=== PATIENT | female | born 1975 | race American Indian/Alaskan Native ===

== ENCOUNTER 2018-11-22 23:48 | Emergency (ER) | payer MEDICAID ==
[2018-11-23 00:08] VITALS: BMI 36.0
[2018-11-23 00:12] VITALS: RESP 18; TEMP 97.8; O2SAT 100
--- NOTE | 2018-11-23 00:48 | C.PDOC ---
History Of Present Illness 43 y/o female pt presents to the ER c/o right lower back pain. Associated sx includes radiating to the right thigh and right leg. Pt was seen at [facility] [place] last night and received naproxen but has not taken it. Pt denies any urinary sx, bowel or bladder incontinence or fever. Time Seen by Provider: 11/23/18 00:09 Chief Complaint (Nursing): Back Pain History Per: Patient History/Exam Limitations: no limitations Onset/Duration Of Symptoms: Days Current Symptoms Are (Timing): Still Present Past Medical History Reviewed: Historical Data, Nursing Documentation, Vital Signs Vital Signs: Last Vital Signs Temp 97.8 F 11/23/18 00:08 Pulse 86 11/23/18 00:08 Resp 18 11/23/18 00:08 BP 154/90 H 11/23/18 00:08 Pulse Ox 100 11/23/18 00:08 - Medical History PMH: CHF, HTN Family History: States: No Known Family Hx - Social History Hx Alcohol Use: Yes Hx Substance Use: No - Immunization History Hx Tetanus Toxoid Vaccination: No Hx Influenza Vaccination: Yes Hx Pneumococcal Vaccination: No Review Of Systems Except As Marked, All Systems Reviewed And Found Negative. Constitutional: Negative for: Fever Genitourinary: Negative for: Dysuria, Frequency, Incontinence, Hematuria Musculoskeletal: Positive for: Back Pain (right lower ), Leg Pain (right ), Other (right thigh ) Physical Exam - Physical Exam Appears: Non-toxic, No Acute Distress Skin: Warm, Dry Head: Normacephalic Eye(s): bilateral: Normal Inspection Chest: Symmetrical Cardiovascular: Rhythm Regular Respiratory: Normal Breath Sounds, No Rales, No Rhonchi, No Wheezing Gastrointestinal/Abdominal: Soft, No Tenderness Back: No CVA Tenderness, Other (right paralumbar tenderness) Extremity: Normal ROM (x4), No Tenderness, No Pedal Edema, No Calf Tenderness, No Deformity, No Swelling Neurological/Psych: Oriented x3, Normal Speech Gait: Steady ED Course And Treatment O2 Sat by Pulse Oximetry: 100 (RA) Pulse Ox Interpretation: Normal Progress Note: Pt advised to take naproxen and f/u with PMD in 1-2 days. Disposition Counseled Patient/Family Regarding: Diagnosis, Need For Followup, Rx Given - Disposition Referrals: [facility] [Outside] Disposition: HOME/ ROUTINE Disposition Time: 00:45 Condition: STABLE Additional Instructions: Please follow up with PMD in 2 days Recommend weight loss Continue Naproxen PO Return to ER if worse Instructions: Sciatica (DC) Forms: [facility] [facility] (Russian) - Clinical Impression Clinical Impression: Sciatica - PA / INTEGRATION TECHNICIAN / Resident Statement MD/DO has reviewed & agrees with the documentation as recorded. - Scribe Statement The provider has reviewed the documentation as recorded by the Scribe Jessenia Champagne All medical record entries made by the Scribe were at my direction and personally dictated by me. I have reviewed the chart and agree that the record accurately reflects my personal performance of the history, physical exam, medical decision making, and the department course for this patient. I have also personally directed, reviewed, and agree with the discharge instructions and disposition.
[2018-11-23 01:14] VITALS: BP 149/89; PULSE 82
== END 2018-11-23 01:15 | disposition home or self-care (01) ==
LOC: C.ER 23:48
DX: M54.31 Sciatica, right side (principal)